=== PATIENT | female | born 1970 | race Native Hawaiian/Other Pacific Islander ===

== ENCOUNTER 2022-07-18 13:08 | Emergency (ER) | payer SELFPAY ==
[~2022-07-18] VITALS: Ht 170.2 cm; Wt 143.1 kg
[2022-07-18] MEDS ORDERED: CYCL5TAB PO (16:28)
[2022-07-18] MEDS ORDERED: NORV5TAB PO (16:28)
[2022-07-18] MEDS ORDERED: LISI20TA33 PO (16:28)
[2022-07-18 16:47] VITALS: BP 121/84
== END 2022-07-18 16:48 | disposition home or self-care (01) ==
LOC: M ED 13:08
DX: S39.012A Strain of muscle, fascia and tendon of lower back, initial encounter (principal); I10 Essential (primary) hypertension; Z76.0 Encounter for issue of repeat prescription; Y92.009 Unspecified place in unspecified non-institutional (private) residence as the place of occurrence of the external cause; Y93.H1 Activity, digging, shoveling and raking; Z79.811 Long term (current) use of aromatase inhibitors; Z79.899 Other long term (current) drug therapy